=== PATIENT | female | born 1960 | race Caucasian/White ===

== ENCOUNTER 2025-06-17 14:50 | Outpatient (AMB) | payer BC, SELFPAY ==
--- NOTE | 2025-06-17 15:14 | A.OFFVIS_ITS ---
Intake Visit Reasons: Right leg Neuropathy Allergies No Known Allergies Allergy (Verified 06/12/25 11:07) Medication List - Last Reconciled 06/17/25 by Ralph Tejada MD atorvastatin 10 mg PO DAILY lisinopril 2.5 mg PO DAILY HPI Comments Details: This is a 64-year-old generally healthy man with a history of well-controlled hypertension and borderline diabetes who has had some chronic back problems. He originally hurt his back, many years ago lifting an 80 lb bag and had severe back pain and could not straighten. He has been seeing a chiropractor for the back pain, currently once a month. Approximately 2 years ago he noted some atrophy of his right calf and complains of numbness on the lateral border of the right foot and the ball of the foot on the right. This has been present for many years. He has had at least 2 nerve conduction/ EMG studies done at the [facility] the report of which has been requested. He has also had an MRI of the lumbar spine in the past when he was seeing Dr. Costello. He has no functional impairment. He is not in any pain does not notice any weakness in his active splinting and carrying wood. [facility] Medical History (Updated 06/17/25 @ 15:38 by Ralph Tejada MD) Diabetes mellitus Metatarsalgia Hyperchloremia Essential hypertension Neuropathy of right lower extremity Idiopathic neuropathy Physical Exam Neuro Other: Mini Mental Status Exam Level of Consciousness:?Alert.? Orientation:?Knows correct year, month, date, day and season.?Knows correct city, county and state. Knows correct location and floor.? Registration:?Able to register 3 objects.? Attention:?Serial 7's performed accurately.? Recall:?Able to recall 3 out of 3 objects.? Language:?Normal spontaneous speech, fluency, repetition, naming, comprehension, reading, and writing.? Total Score:?30/30.? Neurological Abnormal neurological findings:??slight flattening of the right medial gastroc. Absent right ankle reflex. Left AJ is 1+. Normal strength.? Mental Status:?Alert and oriented X 3.?Normal attention, orientation, memory, and affect.? Cranial Nerves:?Pupils are equal, round and reactive to light. Fundoscopy shows normal disc bilaterally. External occular muscles are intact. Visual choe are full, no ptosis. Face is symmetrical, no facial weakness or droop. Facial sensations are normal. Tongue protrudes in midline. Palate elevates symmetrically. Shoulder shrugging is normal.? Motor Examination:?Normal muscle tone, bulk and strength.?No atrophy or fasciculations.?No drift of the extended upper extremities.?Deep tendon reflexes are 2+, AJ L 1+, R 0.?Plantars are flexor.? Motor Strength:? Proximal Muscles (out of 5):?5 Distal Muscles (out of 5):?5 Neck Flexors (out of 5):?5 Neck Extensors (out of 5):?5 Deltoid (out of 5):?5 Biceps (out of 5):?5 Triceps (out of 5):?5 Serratus Anterior (out of 5):?5 Wrist Extensors (out of 5):?5 APB (out of 5):?5 Finger Spread (out of 5):?5 Ileopsoas (out of 5):?5 Quadriceps (out of 5):?5 Hamstrings (out of 5):?5 Tibialis Anterior (out of 5):?5 Peronei (out of 5):?5 EDB (out of 5):?5 Gastrocnemius (out of 5):?5 Straight Leg Raising:?90 degrees.? Sensory Exam:?right lateral foot numbness. temperature, pinprick, vibration and joint-position sensations.?Rhomberg sign is absent.? Coordination:?No ataxia,?no titubation,?lsczqf-au-eode, qgdf-bqch-nsoc test, and rapid alternating movements were normal.? Gait Exam:?Within normal limits.? Cerebellar Signs:?Uihnib-et-tnzw and vwst-yc-koky is normal.?No dysdiadochokinesia.? Extrapyramidal System:?No tremor or?rigidity, normal facial expressions.?No bradykinesia. No bradyphrenia. Normal arm swing and posture. No propulsion or retropulsion.? Speech:?Normal,?no dysphasia or dysarthria.? General Examination GENERAL APPEARANCE:??normal,?in no acute distress?,?normal,?in no acute distress.? HEAD:??normocephalic,?atraumatic.? EYES:??sclera non-icteric,?conjunctiva clear.? EARS:??auditory canal clear,?tympanic membrane intact, clear.? NOSE:??no lesions.? ORAL CAVITY:??gums normal,?mucosa moist,?no lesions.? THROAT:??clear.? NECK/THYROID:??no cervical lymphadenopathy,?thyroid normal,?neck supple, full range of motion,?no carotid bruit.? SKIN:??no rashes,?no significant birthmarks.? HEART:??S1, S2 normal,?no murmurs?,?S1, S2 normal,?no murmurs.? LUNGS:??clear anteriorly and posteriorly?,?clear anteriorly and post eriorly.? CHEST:??no gross rib deformity,?clear to auscultation.? BACK:??normal exam of spine.? MUSCULOSKELETAL:??normal.? EXTREMITIES:??no edema?,?no edema.? PERIPHERAL PULSES:??normal.? PSYCH:??alert, oriented,?cognitive function intact,?cooperative with exam?,?alert, oriented,?cognitive function intact,?cooperative with exam.? Assessment & Plan Assessment & Plan (1) Lumbosacral radiculopathy at S1: Code(s): M54.17 - Radiculopathy, lumbosacral region Category: Medical (2) Neuropathy of right lower extremity: Code(s): G57.91 - Unspecified mononeuropathy of right lower limb Category: Medical Plan Obtain MRI report and NCV/ EMG report from [facility] Coding Level of Care Code New Pt Level 5 (32124) Diagnoses Lumbosacral radiculopathy at S1 M54.17 Neuropathy of right lower extremity G57.91
--- NOTE | 2025-06-17 15:41 | A.OFFVIS_ITS ---
Intake Visit Reasons: Right leg Neuropathy Allergies No Known Allergies Allergy (Verified 06/12/25 11:07) Medication List - Last Reconciled 06/17/25 by Ralph Tejada MD atorvastatin 10 mg PO DAILY lisinopril 2.5 mg PO DAILY [facility] Medical History (Updated 06/17/25 @ 15:38 by Ralph Tejada MD) Diabetes mellitus Metatarsalgia Hyperchloremia Essential hypertension Neuropathy of right lower extremity Idiopathic neuropathy Assessment & Plan Assessment & Plan (1) Lumbosacral radiculopathy at S1: Code(s): M54.17 - Radiculopathy, lumbosacral region Category: Medical (2) Neuropathy of right lower extremity: Code(s): G57.91 - Unspecified mononeuropathy of right lower limb Category: Medical Plan Review MRI LS spine and EMG/ NCV from [facility] Coding Level of Care Code New Pt Level 5 (01435) Diagnoses Lumbosacral radiculopathy at S1 M54.17 Neuropathy of right lower extremity G57.91
--- OUTSIDE RECORDS SUMMARY | 2025-06-17 15:41 | XMS_ITS | Clinical Summary ---
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 1 04/19/2019 Active Social History Tobacco Use Types Packs/Day Years Used Date Smoking Tobacco: Never Alcohol Use Standard Drinks/Week Comments Not Currently 0 (1 standard drink = 0.6 oz pur e alcohol) Education Answer Date Recorded Are you interested in more education? Not on john e 03/03/2023 Are you concerned about learning? Not on file 03/03/2023 No 03/03/2023 No 03/03/2023 Digital Access Answer Date Recorded No 04/01/2023 No 04/01/2023 No 04/01/2023 Reliable internet access at home? Not on file 04/01/2023 Device with a working camera? Not on file Sex and Gender Information Value Date Recorded Sex Assigned at Not on file Legal Sex Male 2:56 PM EDT Gender Identity Not on file Sexual Orientation Not on file Last Filed Vital Signs Vital Sign Reading Time Taken Comments Blood Pressure 150/101 06/21/2019 3:45 PM EDT Pulse 84 06/21/2019 3:45 PM EDT Temperature 36.4 C (97.6 F) 06/21/2019 3:45 PM EDT Respiratory Rate - - Oxygen Saturation 98% 06/21/2019 3:45 PM EDT Inhaled Oxygen Concentration - - Weight 76.7 kg (169 lb) 06/21/2019 3:45 PM EDT Height 175.3 cm (5' 9 ) 06/21/2019 3:45 PM EDT Body Mass Index 24.96 06/21/2019 3:45 PM EDT Plan of Treatment Health Maintenance Due Date Last Done Comments Adult Td,Tdap Booster 1961 CREATININE LEVEL 1961 POTASSIUM LEVEL 1961 DEPRESSION SCREENING 1973 HEPATITIS C SCREENING 1979 HIV ONE-TIME SCREENING (18-6 5 YEARS) 1979 SMOKING STATUS SCREENING (On ce After 26 Yrs) 1987 COLOGUARD 2006 COLONOSCOPY 2006 COLORECTAL CANCER SCREENING 2006 FIT TEST 2006 FOBT 2006 SIGMOIDOSCOPY 2006 VIRTUAL COLONOSCOPY 2006 PNEUMOCOCCAL VACCINES (50+ years) (1 of 1 - PCV) 2011 ZOSTER VACCINES (1 of 2) 2011 COVID-19 VACCINE (3 - 2023-2 5 season) 2024 12/16/2020, 11/18/2020 LIPID PANEL 08/22/2029 08/22/2024 RSV VACCINE (1 - 1-dose 75+ series) 2036 HEPATITIS A VACCINES Aged Out No long er eligible based on patient's age to complete this topic HIB VACCINES Aged Out No longer eligi ble based on patient's age to complete this topic MENINGOCOCCAL VACCINES (ACWY) Aged Out No longer eligible based on patient's age to complete this topic MENINGOCOCCAL VACCINES (B) Aged Out N o longer eligible based on patient's age to complete this topic Medical Devices Not on file Insurance [employer] H[employer] [facility] [place] [address] [place] [address]O [facility] E[facility] [address] [place] [address] [facility] E[facility] E[facility] Care Teams 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 It is not the complete legal health record.[facility]
== END 2025-06-17 15:44 | disposition home or self-care (01) ==
LOC: HO.HSM 14:51
PROVIDERS: PCP Internal Medicine; Referring Provider Internal Medicine; Visit Provider Psychiatry & Neurology Neurology
DX: G57.91 Unspecified mononeuropathy of right lower limb (principal)
CPT/HCPCS: 99203